=== PATIENT | female | born 1980 | race Caucasian/White ===

== ENCOUNTER 2018-02-09 23:44 | Emergency (ER) | payer BC, OTHER ==
[2018-02-09 23:51] VITALS: BP 138/81; PULSE 97; RESP 16; TEMP 97
[2018-02-10] MEDS ORDERED: SULFAMETH-TMP DS STARTER PACK 2 TAB BTL PO STA (00:14)
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
[2018-02-10] MEDS ORDERED: traMADol 50 MG STARTER PACK 3 TAB BTL PO STA (00:30)
== END 2018-02-10 00:37 | disposition home or self-care (01) ==
LOC: EC 23:44
DX: L02.413 Cutaneous abscess of right upper limb (principal); E10.9 Type 1 diabetes mellitus without complications; E07.9 Disorder of thyroid, unspecified; F32.9 Major depressive disorder, single episode, unspecified; F41.0 Panic disorder [episodic paroxysmal anxiety]; F43.10 Post-traumatic stress disorder, unspecified; Z87.891 Personal history of nicotine dependence; Z79.4 Long term (current) use of insulin; Z79.899 Other long term (current) drug therapy; Z79.52 Long term (current) use of systemic steroids
CPT/HCPCS: 10060; 87070; 87077; 87186; 87205; 99283

== ENCOUNTER → 2018-02-26 | Outpatient (CLI) | payer BC ==
--- NOTE | 2018-02-26 11:11 | CT ---
EXAMINATION TYPE: CT sinus wo con DATE OF EXAM: 02/26/2018 COMPARISON: NONE HISTORY: Chronic sinusitis CT DLP: 704 mGycm CONTRAST: None Technique: The paranasal sinuses are examined in the axial plane at 2 mm thick sections. Reconstruct ed images in the coronal plane were obtained. FINDINGS: There is dental amalgam scatter artifact The maxillary sinuses are clear. The ethmoid air cells are clear. The sphenoid sinuses are clear. The frontal sinuses are clear. The septum is evaluated. There is septal deviation to the left. The ostiomeatal units are patent. IMPRESSIONS: 1. Left septal deviation.
== END | disposition home or self-care (01) ==
LOC: RADCTMAIN 09:29
PROVIDERS: ATTEND Otolaryngology
DX: J34.2 Deviated nasal septum (principal)
CPT/HCPCS: 70486

== ENCOUNTER 2018-07-18 08:56 | Day surgery (SDC) | payer OTHER, MEDICARE, BC ==
[2018-07-12 14:10] VITALS: BMI 18.8
[~2018-07-18 08:56] MED LIST: DEXAMETHASONE SOD PHOSPHATE 10 MG/ML 1 ML VIAL IV ONE; DEXAMETHASONE SOD PHOSPHATE 4 MG/ML 1 ML VIAL IV ONE; LACTATED RINGERS 1,000 ML IV SCH; ONDANSETRON 4 MG/2 ML VIAL IVP ONE; OXYMETAZOLINE 0.05% NASL SPRAY 1 SPRAY BOTTLE NASAL ONE; ceFAZolin 1,000 MG in DEXTROSE/WATER 1 50ML.BAG IV ONE
[2018-07-18 09:58] LABS: Glucose,Whole Blood 150 mg/dL (75-99)
[2018-07-18] MEDS ORDERED: FAMOTIDINE 20 MG/2 ML VIAL IV ONE (09:58)
[2018-07-18] MEDS: ONDANSETRON 4 MG/2 ML VIAL IVP ONE ×2 (10:01→13:08)
[2018-07-18] MEDS ORDERED: MIDAZOLAM 2 MG/2 ML VIAL IV ONE (10:08)
[2018-07-18] MEDS ORDERED: MIDAZOLAM 2 MG/2 ML VIAL ONE (10:59)
[2018-07-18] MEDS ORDERED: PROPOFOL 10 MG/ML 20 ML VIAL IV ONE (10:59)
[2018-07-18] MEDS ORDERED: DEXAMETHASONE SOD PHOS (MDV) 100 MG/10 ML VIAL ONE (10:59)
[2018-07-18] MEDS ORDERED: fentaNYL (PF) 50 MCG/ML 2 ML AMP ONE (10:59)
[2018-07-18] MEDS ORDERED: SUCCINYLCHOLINE CHLORIDE 100 MG/5 ML SYR IV ONE (10:59)
[2018-07-18] MEDS ORDERED: LIDOCAINE 1% INJ 10MG/ML (20 ML MDV) ONE (10:59)
[2018-07-18] MEDS ORDERED: BUPIVACAIN-EPI 0.25%-1:200,000 30 ML VIAL SQ ONE ×3 (11:27)
[2018-07-18] MEDS ORDERED: LIDOCAINE 1%-EPI 1:100,000 20 ML VIAL SQ ONE ×3 (11:28)
--- NOTE | 2018-07-18 12:26 | P.OP ---
Date of Procedure: 07/18/18 Preoperative Diagnosis: Deviated nasal septum Hypertrophy of inferior nasal turbinates with obstruction External nasal deformity Postoperative Diagnosis: Same Procedure(s) Performed: Septoplasty Rhinoplasty Bilateral inferior turbinate submucosal resection with outfracturing compression Anesthesia: MICHELLE Surgeon: Clemente Pat Estimated Blood Loss (ml): 10 Pathology: none sent Condition: stable Disposition: PACU Indications for Procedure: This patient presented to the office today with problems of anosmia nasal congestion an external nasal deformity. She had an initial nasal trauma in the past and underwent surgery at a different institution. She has a large septal spur to the left that's Blocking her airway she also has a Nasal deformity with the deviation of the nose to the left. She has nasal obstruction from large obstructive inferior turbinates and surgical correction was recommended. All risks, benefits, and alternative therapies were discussed. Consent was obtained and all questions were answered. Operative Findings: Patient had an external nasal deformity with a dorsal hump and theposterior over to the left she also had large obstructive inferior turbinates and a deviated septum to the left with a septal spur. Description of Procedure: This patient was taken to the operative room and placed in the supine position. A general inhalation anesthetic was administered to the patient by the department of anesthesia with a functioning IV line in place. The patient was monitored throughout the entire case by the department of anesthesia. The eyes were taped shut for protection. The patient was placed in a slight reverse Trendelenburg position. The patient had previously utilize Afrin nasal spray preoperatively. The nose was evaluated and the septum lateral nasal wall and inferior turbinates were injected with lidocaine 1% with epinephrine 1 100,000 bilaterally. Approximately 10 minutes were allowed wait for full vasoconstrictive effects to take place. At this point a caudal incision was made over the caudal portion of the left septum down to the mucoperichondrium. A mucoperichondrial flap was elevated on the left side and dissection was carried with use of tunnels posteriorly. We then made a crossover incision through the cartilage to the contralateral side and for the mucoperichondrial flap development was performed to the extent of visualization on the contralateral side. After the cartilage was freed with use of several crosshatching incisions and removal of some redundant strips of septal cartilage, the septum was straightened and placed back in the midline. The septum was sutured fixated to the vomerian groove. Excellent straightening occurred and the septum was visibly straight. Incision was closed with a 40 rapid Vicryl. We utilized a running nonlocking fashion for closure of the incision. A quilting stitch was used to reapproximate the septal flaps with use of a 40 rapid Vicryl. Merocel sponge packs were placed bilaterally which will be removed in the recovery room. They were placed at the end of the case. Attention was then paid to the inferior turbinates. The bilateral inferior turbinates were hypertrophic and obstructive. We entered the anterior portion of the inferior turbinates with use of a microdebrider. We remove bone and submucosal elements with use of a microdebrider bilaterally. The inferior turbinates underwent a submucosal resection with removal of submucosal tissue and bone. We obtained a much better and normal in size for breathing. The inferior turbinates were then outfractured and compressed with a Yun Yun nasal elevator. Excellent airway was obtained and was symmetric bilaterally. No bleeding was encountered. Attention was paid to the nose which was previously sterilely prepped and draped in usual fashion. We anesthetized the nose previously. An intercartilaginous incision was made bilaterally and the nasalis muscle and tissue was elevated off the nasal dorsum exposing the dorsal hump. We rasped down the nasal hump and gave us a better contour the nasal dorsum. We then accomplished medial and lateral osteotomies with use of a Nyvert osteotomes. We placed the nasal bones back into position and straighten the nose. After the nose was straightened the nose was taped and casted in usual fashion. All incisions were closed with 4 rapid Vicryl. Excellent external nasal form was accomplished with an excellent cosmetic result. Airway was also excellent after straightening the septum and doing surgery on the inferior turbinates. Patient tolerated this well patient was taken to postanesthesia recovery in excellent condition.
[2018-07-18 12:44] VITALS: TEMP 97.6
[2018-07-18 12:46] LABS: Glucose,Whole Blood 177 mg/dL (75-99)
[2018-07-18] MEDS: HYDROmorphone 0.5 MG/0.5 ML SYRINGE IVP PRN ×4 (13:07→13:39)
[2018-07-18 14:24] VITALS: RESP 18
[2018-07-18 14:45] VITALS: BP 125/78; PULSE 68
== END 2018-07-18 14:56 | disposition home or self-care (01) ==
LOC: OR 08:56
PROVIDERS: ATTEND Otolaryngology
DX: J34.2 Deviated nasal septum (principal); J34.3 Hypertrophy of nasal turbinates; M95.0 Acquired deformity of nose; E11.9 Type 2 diabetes mellitus without complications; Z79.4 Long term (current) use of insulin; K76.9 Liver disease, unspecified; G43.909 Migraine, unspecified, not intractable, without status migrainosus; Z87.820 Personal history of traumatic brain injury; Z79.890 Hormone replacement therapy; Z79.891 Long term (current) use of opiate analgesic; Z79.52 Long term (current) use of systemic steroids; Z79.899 Other long term (current) drug therapy
CPT/HCPCS: 30140; 30520; J2250; J1100 ×2; J2405; J2001; J3010; J0690; J0330; J2704; J1170

== ENCOUNTER → 2019-08-21 | Outpatient (CLI) | payer MEDICARE ==
--- NOTE | 2019-08-21 11:06 | MM ---
Reason for exam: screening (asymptomatic). Baseline mammogram. History: Family history of premenopausal breast cancer in mother. Saline implant in the left breast. Saline implant in the right breast. Physical Findings: Nurse Summary: 2cm nodule in the right breast at 9 o'clock (nurse nenita). MG 3D Screen Mammo Imp/Cad Bilateral CC, MLO, and ID view(s) were taken. No prior studies available for comparison. The breast tissue is extremely dense which could obscure a lesion on mammography. No suspicious abnormality. Bilateral retropectoral silicone implants. These results were verbally communicated with the patient and result sheet given to the patient on 08/21/19. ASSESSMENT: Incomplete: need additional imaging evaluation, BI-RAD 0 RECOMMENDATION: Ultrasound of the right breast. (palpable)
--- NOTE | 2019-08-21 11:08 | USB ---
Reason for exam: additional evaluation requested from abnormal screening. History: Family history of premenopausal breast cancer in mother. Saline implant in the left breast. Saline implant in the right breast. US Breast Limited RT Right limited breast ultrasound including focal area of concern, retroareolar and axilla demonstrates no cystic or solid lesion seen. No [place]-implant fluid collection. These results were verbally communicated with the patient and result sheet given to the patient on 08/21/19. ASSESSMENT: Negative, BI-RAD 1 RECOMMENDATION: Return to routine screening mammogram schedule for both breasts.
== END | disposition home or self-care (01) ==
LOC: RADMAMWWP 09:22
PROVIDERS: ATTEND Family Medicine
DX: Z12.31 Encounter for screening mammogram for malignant neoplasm of breast (principal); R92.8 Other abnormal and inconclusive findings on diagnostic imaging of breast
CPT/HCPCS: 77063; 77067

== ENCOUNTER → 2019-11-11 | Outpatient (CLI) | payer MEDICARE ==
--- NOTE | 2019-11-11 12:55 | XR ---
EXAMINATION TYPE: XR knee complete LT DATE OF EXAM: 11/11/2019 CLINICAL HISTORY: Falling injury 2 days ago with pain. TECHNIQUE: Three views of the left knee are obtained. COMPARISON: None. FINDINGS: There is no acute fracture/dislocation evident in left knee. Mild narrowing patellofemoral and medial tibiofemoral compartments. The overlying soft tissue appears unremarkable. IMPRESSION: There is no acute fracture or dislocation in the left knee.
== END | disposition home or self-care (01) ==
LOC: RADXRMAIN 12:08
PROVIDERS: ATTEND Family Medicine
DX: M25.562 Pain in left knee (principal)

== ENCOUNTER 2019-12-25 07:40 | Day surgery (SDC) | payer OTHER, MEDICARE ==
[2019-12-23 14:18] VITALS: BMI 19.5
[~2019-12-25 07:40] MED LIST changes: -DEXAMETHASONE SOD PHOSPHATE 4 MG/ML 1 ML VIAL IV ONE; +FAMOTIDINE 20 MG/2 ML VIAL IV ONE; +LIDOCAINE 1% 20 ML VIAL (10MG/ML) FOR IV START INTRADERMA PRN; -OXYMETAZOLINE 0.05% NASL SPRAY 1 SPRAY BOTTLE NASAL ONE; +SCOPOLAMINE 1.5MG/72HR PATCH TRANSDERM ONE; -ceFAZolin 1,000 MG in DEXTROSE/WATER 1 50ML.BAG IV ONE
[2019-12-25] MEDS ORDERED: MIDAZOLAM 2 MG/2 ML VIAL IV ONE (08:29)
[2019-12-25 08:33] LABS: Glucose,Whole Blood 259 mg/dL (75-99)
[2019-12-25] MEDS: OXYMETAZOLINE 0.05% NASL SPRAY 1 SPRAY BOTTLE EA NOSTRIL ONE ×3 (08:35→08:45)
[2019-12-25] MEDS ORDERED: SUCCINYLCHOLINE CHLORIDE 100 MG/5 ML SYR IV ONE (08:52)
[2019-12-25] MEDS ORDERED: PHENYLEPHRINE-0.9% NACL SYG 1 MG/10 ML SYRINGE ONE (08:52)
[2019-12-25] MEDS ORDERED: LIDOCAINE 1% INJ 10MG/ML (20 ML MDV) ONE (08:52)
[2019-12-25] MEDS ORDERED: PROPOFOL 10 MG/ML 20 ML VIAL IV ONE (08:52)
[2019-12-25] MEDS ORDERED: fentaNYL (PF) 50 MCG/ML 2 ML AMP ONE (08:52)
[2019-12-25] MEDS ORDERED: LIDOCAINE 1%-EPI 1:100,000 20 ML VIAL SQ ONE ×2 (09:23→09:52)
[2019-12-25] MEDS ORDERED: FLUORESCEIN STRIPS 1 MG STRIP MISCELLANE ONE (09:23)
[2019-12-25] MEDS ORDERED: EPINEPHrine 1 MG/ML (MDV) 30 ML VIAL IRRIGATION ONE (09:23)
[2019-12-25] MEDS ORDERED: BUPIVACAINE (PF) 0.25% 30 ML VIAL SQ ONE ×2 (09:23→09:52)
[2019-12-25] MEDS: HYDROmorphone 0.5 MG/0.5 ML SYRINGE IVP PRN ×4 (10:19→10:36)
[2019-12-25 10:20] LABS: Glucose,Whole Blood 294 mg/dL (75-99)
--- NOTE | 2019-12-25 10:23 | P.OP ---
Date of Procedure: 12/25/19 Preoperative Diagnosis: Chronic Sinusitis Post-nasal drainage Postoperative Diagnosis: Same Procedure(s) Performed: Functional endoscopic sinus surgery Anesthesia: DOROTHYA Surgeon: Clemente Pat Estimated Blood Loss (ml): 20 Pathology: none sent Condition: stable Disposition: PACU Indications for Procedure: This patient presented to the office with constant sinonasal symptoms for many years and has tried multiple antibiotics nasal sprays decongestants etc. with no improvement. She complains of anosmia, consent thick postnasal drainage, intranasal crusting and scabbing and chronic infection. CAT scan evaluation shows chronic pansinusitis with significant involvement of the frontal ethmoid sphenoid and maxillary sinuses. Operative Findings: Patient had diseased tissue of all sinuses bilaterally. The frontal sinus guide yellow-green drainage with diseased tissue the sphenoid sinus drainage was more milky and the maxillary and ethmoid sinus drainage was also white. Description of Procedure: This patient was taken to the operative room and placed in the supine position. A general inhalation anesthetic was administered to the patient by the department of anesthesia with a functioning IV line in place. The patient was monitored throughout the entire case by the department of anesthesia. The eyes were taped shut for protection. The patient was placed in a slight reverse Trendelenburg position. The patient had previously utilize Afrin nasal spray preoperatively. The nose was evaluated and the septum lateral nasal wall and inferior turbinates were injected with lidocaine 1% with epinephrine 1 100,000 bilaterally. Approximately 10 minutes were allowed wait for full vasoconstrictive effects to take place. We then entered the nose with a 0 and 30 Landon daisha endoscope. Previous to this we did inject the lateral nasal wall and middle turbinate and uncinate process with lidocaine 1% with epinephrine 1 100,000. Approximately 10 minutes were allowed wait for full vasoconstrictive effects to take place. With use of a microdebrider and a pediatric backbiter, we took down the uncinate process bilaterally. We then opened the maxillary sinuses bilaterally. We utilized a microdebrider for this and entered the maxillary sinuses and removed diseased tissue. This was done bilaterally. After the maxillary sinuses were opened and the diseased tissue was removed we entered the ethmoid bulla and with use of a microdebrider and up-biting Sana, we followed the fovea frontalis through the basal lamella and into the posterior ethmoid air cells and did a total ethmoidectomy. We removed the anterior ethmoid air cells with use of a microdebrider and up-biting boss. After all the anterior ethmoid air cells were removed we did the same in the posterior ethmoid. A total ethmoidectomy was completed in that fashion with removal of all the anterior and posterior ethmoid air cells and diseased tissue. Once the ethmoids cells were all taken down we then entered the sphenoid sinus medially and inferiorly underneath the inferior attachment of the superior turbinate. The sphenoid sinus was opened entered and diseased tissue was removed bilaterally. This was done with a microdebrider and [place]. We then entered the frontal sinuses with a giraffe and up-biting Blakesley entered on the agar nasi cells. We open the frontal sinuses and removed sinus tissue that was diseased. We explored the frontal sinuses bilaterally. To summarize all sinuses were open all sinuses were explored and we remove diseased tissue from the sphenoid maxillary and frontal sinuses. Ethmoid sinuses were opened totally. Xerogel was inserted and minimal bleeding was encountered. We reinspected the skull base there is no signs of any orbital penetration or signs of any intracranial penetration. The sugical site was reinspected after the xerogel was placed and no bleeding was seen. Patient was taken to postanesthesia recovery in excellent condition. The surgical site was reinspected and no bleeding was noted.
[2019-12-25 10:24] VITALS: TEMP 97.4
[2019-12-25 10:26] VITALS: RESP 16
[2019-12-25] MEDS ORDERED: HYDROcodone/APAP 5-325MG 1 EACH TAB PO ONE ×2 (11:10→11:40)
[2019-12-25 11:20] VITALS: PULSE 84
[2019-12-25 11:36] VITALS: BP 104/69
== END 2019-12-25 12:11 | disposition home or self-care (01) ==
LOC: OR 07:40
PROVIDERS: ATTEND Otolaryngology
DX: J32.4 Chronic pansinusitis (principal); E10.9 Type 1 diabetes mellitus without complications; J45.909 Unspecified asthma, uncomplicated; E07.9 Disorder of thyroid, unspecified; M50.30 Other cervical disc degeneration, unspecified cervical region; D89.89 Other specified disorders involving the immune mechanism, not elsewhere classified; K74.60 Unspecified cirrhosis of liver; G25.82 Stiff-man syndrome; Z87.820 Personal history of traumatic brain injury; Z90.710 Acquired absence of both cervix and uterus; Z98.890 Other specified postprocedural states; Z79.899 Other long term (current) drug therapy; Z79.891 Long term (current) use of opiate analgesic; Z79.4 Long term (current) use of insulin; Z79.1 Long term (current) use of non-steroidal anti-inflammatories (NSAID); Z79.890 Hormone replacement therapy
CPT/HCPCS: 88305; 31253; 31267; 31259; J0171; J2250; J2405; J2001; J3010; J2370; J0330; J2704; J1170

== ENCOUNTER → 2020-01-26 | Outpatient (CLI) | payer MEDICARE ==
[2020-01-27 10:40] LABS: Alt. alternata IgE Class CLASS 0; Alternaria alternata IgE <0.10 kU/L (<0.10); Asperg. fumagatus IgE <0.10 kU/L (<0.10); Asperg. fumagatus IgE Class CLASS 0; Aureo. pullulans IgE <0.10 kU/L (<0.10); Aureo. pullulans IgE Class CLASS 0; Birch(Com.Silvr) IgE <0.10 kU/L (<0.10); Birch(Com.Silvr) IgE Class CLASS 0; Candida albicans IgE Class CLASS 0; Cat Epith & Dander IgE <0.10 kU/L (<0.10); Cat Epith & Dander IgE Class CLASS 0; Clad herbarum IgE <0.10 kU/L (<0.10); Clad herbarum IgE Class CLASS 0; Cockroach IgE <0.10 kU/L (<0.10); Com. Pigweed IgE <0.10 kU/L (<0.10); Com. Pigweed IgE Class CLASS 0; Cottonwood IgE <0.10 kU/L (<0.10); Dermato. Pteronyssinus Class CLASS 0; Dermato. Pteronyssinus IgE <0.10 kU/L (<0.10); Dermato. farinae IgE <0.10 kU/L (<0.10); Dermato. farinae IgE Class CLASS 0; Dog Dander IgE <0.10 kU/L (<0.10); English Plantain IgE Class CLASS 0; Epicoccum purpurascens Class CLASS 0; Epicoccum purpurascens IgE <0.10 kU/L (<0.10); Johnson Grass IgE Class CLASS 0; Lamb's Quarter IgE <0.10 kU/L (<0.10); Lamb's Quarter IgE Class CLASS 0; Maple (Box Elder) IgE <0.10 kU/L (<0.10); Maple (Box Elder) IgE Class CLASS 0; Mucor racemosus IgE <0.10 kU/L (<0.10); Mucor racemosus IgE Class CLASS 0; Oak IgE <0.10 kU/L (<0.10); Rhizopus nigricans IgE <0.10 kU/L (<0.10); Rhizopus nigricans IgE Class CLASS 0; S.rostrata/Helminth Class CLASS 0; S.rostrata/Helminth IgE <0.10 kU/L (<0.10); Sycamore(Mpl.Lf) IgE <0.10 kU/L (<0.10); Sycamore(Mpl.Lf) IgE Class CLASS 0; Timothy Grass IgE <0.10 kU/L (<0.10); Timothy Grass IgE Class CLASS 0; Walnut Tree IgE <0.10 kU/L (<0.10); Walnut Tree IgE Class CLASS 0; White Ash IgE Class CLASS 0
== END | disposition home or self-care (01) ==
LOC: LABWHC1 15:53
PROVIDERS: ATTEND Otolaryngology
DX: J30.89 Other allergic rhinitis (principal)
CPT/HCPCS: 36415; 86001; 86003